=== PATIENT | female | born 1990 | race Caucasian/White ===

== ENCOUNTER → 2020-06-19 | Outpatient (CLI) | payer OTHER ==
[~2020-06-19] MED LIST: COL-RITE100 MG PO; FEROSUL325 MG PO; IBUPROFEN600 MG PO; LANOLIN TOP; NORCO 5-325 TA1 EACH PO; PERCOCET 5/325 T1 EA PO; [UNRECOGNIZED DRUG - OTHER] TOP; [UNRECOGNIZED DRUG - OTHER] TOP
== END ==
LOC: LAB 22:48
DX: Z02.83 Encounter for blood-alcohol and blood-drug test (principal)
CPT/HCPCS: 36415